=== PATIENT | male | born 1995 | race Caucasian/White ===

== ENCOUNTER 2018-06-03 16:37 | Emergency (ER) | payer BC ==
[2018-06-03] MEDS ORDERED: OXYCODONE-ACETAMINOPHEN 5-325 MG TABLET PO ONE (17:19)
[2018-06-03] MEDS ORDERED: DIPH/PERTUSS(ACELL)/TETANUS VAC/PF 0.5 ML SYR (>=10YO) IM ONE (17:19)
--- NOTE | 2018-06-03 17:20 | ER Document Report ---
ED Medical Screen (RME) - General Chief Complaint: Laceration Stated Complaint: FINGER LACERATION Time Seen by Provider: 06/03/18 17:17 Notes: 22-year-old male patient reports he is playing around with a box builder type razor knife and accidentally cut his left index fingertip. I have greeted and performed a rapid initial assessment of this patient. A comprehensive ED assessment and evaluation of the patient, analysis of test results and completion of the medical decision making process will be conducted by additional ED providers. TRAVEL OUTSIDE OF THE [place] IN LAST 30 DAYS: No - Related Data Allergies/Adverse Reactions: shellfish derived Allergy (Verified 06/03/18 16:37) Past Medical History - Social History Frequency of alcohol use: Occasional Drug Abuse: None Renal/ Medical History: Denies: Hx Peritoneal Dialysis Physical Exam - Vital signs Vitals: Temp Pulse Resp BP Pulse Ox 97.8 F 75 18 151/91 H 100 06/03/18 16:40 06/03/18 16:40 06/03/18 16:40 06/03/18 16:40 06/03/18 16:40 Course - Vital Signs Vital signs: Temp Pulse Resp BP Pulse Ox 97.8 F 75 18 151/91 H 100 06/03/18 16:40 06/03/18 16:40 06/03/18 16:40 06/03/18 16:40 06/03/18 16:40
[2018-06-03] MEDS ORDERED: ACETAMINOPHEN 325 MG TABLET PO ONE (17:26)
[2018-06-03] MEDS ORDERED: LIDOCAINE 1% INJ-PF (10 MG/ML) 30 ML SDV INJ ONE (18:19)
--- NOTE | 2018-06-03 18:21 | ER Document Report ---
ED Hand/Wrist Injury - General Chief Complaint: Laceration Stated Complaint: FINGER LACERATION Time Seen by Provider: 06/03/18 17:17 Mode of Arrival: Ambulatory Information source: Patient Notes: 22-year-old male presented to ED for complaint of laceration to the left index fingertip. Patient is alert and oriented respirations regular and unlabored speaking in full sentences. He states he does not know when his last tetanus shot was. TRAVEL OUTSIDE OF THE [place] IN LAST 30 DAYS: No - HPI Injury to: Index finger Onset: Just prior to arrival Where: Home Timing: Still present Quality of pain: Sharp, Throbbing Severity: Moderate Pain Level: 3 Context: Laceration - Related Data Allergies/Adverse Reactions: shellfish derived Allergy (Verified 06/03/18 16:37) Past Medical History - General Information source: Patient - Social History Smoking Status: Never Smoker Cigarette use (# per day): No Chew tobacco use (# tins/day): No Smoking Education Provided: No Frequency of alcohol use: Occasional Drug Abuse: None Occupation: [employer] Lives with: Alone Family History: Reviewed & Not Pertinent Patient has suicidal ideation: No Patient has homicidal ideation: No - Past Medical History Cardiac Medical History: Reports: None Pulmonary Medical History: Reports: Hx Asthma EENT Medical History: Reports: None Neurological Medical History: Reports: None Endocrine Medical History: Reports: None Renal/ Medical History: Reports: Hx Hydrocele Malignancy Medical History: Reports None GI Medical History: Reports: None Musculoskeletal Medical History: Reports None Skin Medical History: Reports None Psychiatric Medical History: Reports: None Traumatic Medical History: Reports: None Infectious Medical History: Reports: None Past Surgical History: Reports: Hx Adenoidectomy, Hx Oral Surgery - M[place] teeth , Hx Tonsillectomy, Other - Removal of hydroceles left side - Immunizations Immunizations up to date: Yes Hx Diphtheria, Pertussis, Tetanus Vaccination: Yes - 05/03/2018 Review of Systems - Review of Systems Notes: REVIEW OF SYSTEMS: CONSTITUTIONAL : Denies fever, chills, or sweats. Denies recent illness. EENT: Denies eye, ear, throat, or mouth pain or symptoms. Denies nasal or sinus congestion or discharge. Denies throat, tongue, or mouth swelling or difficulty swallowing. CARDIOVASCULAR: Denies chest pain. Denies palpitations or racing or irregular heart beat. Denies ankle edema. RESPIRATORY: Denies cough, cold, or chest congestion. Denies shortness of breath, difficulty breathing, or wheezing. GASTROINTESTINAL: Denies abdominal pain or distention. Denies nausea, vomiting , or diarrhea. Denies blood in vomitus, stools, or per rectum. Denies black, tarry stools. Denies constipation. GENITOURINARY: Denies difficulty urinating, painful urination, burning, frequency, blood in urine, or discharge. MUSCULOSKELETAL: Denies back or neck pain or stiffness. Denies joint pain or swelling. SKIN: Laceration to the distal left index fingertip. There was a small injury to the fingernail. HEMATOLOGIC : Denies easy bruising or bleeding. LYMPHATIC: Denies swollen, enlarged glands. NEUROLOGICAL: Denies confusion or altered mental status. Denies passing out or loss of consciousness. Denies dizziness or lightheadedness. Denies headache. Denies weakness or paralysis or loss of use of either side. Denies problems with gait or speech. Denies sensory loss, numbness, or tingling. Denies seizures. PSYCHIATRIC: Denies anxiety or stress. Denies depression, suicidal ideation, or homicidal ideation. ALL OTHER SYSTEMS REVIEWED AND NEGATIVE. Dictation was performed using [employer] voice recognition software PHYSICAL EXAMINATION: GENERAL: Well-appearing, well-nourished and in no acute distress. HEAD: Atraumatic, normocephalic. EYES: Pupils equal round and reactive to light, extraocular movements intact, sclera anicteric, conjunctiva are normal. ENT: Nares patent, oropharynx clear without exudates. Moist mucous membranes. NECK: Normal range of motion, supple without lymphadenopathy LUNGS: Breath sounds clear to auscultation bilaterally and equal. No wheezes rales or rhonchi. HEART: Regular rate and rhythm without murmurs ABDOMEN: Soft, nontender, nondistended abdomen. No guarding, no rebound. No masses appreciated. Musculoskeletal: Normal range of motion, no pitting or edema. No cyanosis. NEUROLOGICAL: Cranial nerves grossly intact. Normal speech, normal gait. Normal sensory, motor exams PSYCH: Normal mood, normal affect. SKIN: Laceration to the tip of the left index finger almost separate comfort control. Most of the nail was intact but there was a small laceration to the nail. Laceration was almost a flap of the end of the finger and was about 3 cm long Physical Exam - Vital signs Vitals: Temp Pulse Resp BP Pulse Ox 97.8 F 75 18 151/91 H 100 06/03/18 16:40 06/03/18 16:40 06/03/18 16:40 06/03/18 16:40 06/03/18 16:40 Course - Re-evaluation Re-evalutation: 06/04/18 01:46 Patient was treated with tetanus immunization, doxycycline, he was offered narcotics which he refused. His finger was soaked in some surgical scrub and warm water and it was anesthetized with lidocaine. The x-ray was negative for any bony involvement. The finger was then sutured with Ethilon sutures. Patient tolerated procedure well and was discharged home with prescription for doxycycline and instructions to follow-up with his primary care doctor on Tuesday. Patient was given instructions for care of wound and when to return to the ED. Patient was able to verbalize understanding and agreement with treatment plan. - Vital Signs Vital signs: Temp Pulse Resp BP Pulse Ox 98.1 F 72 16 142/79 H 99 06/03/18 20:14 06/03/18 20:14 06/03/18 20:14 06/03/18 20:14 06/03/18 20:14 Procedures - Laceration/Wound Repair Left Finger 2nd digit Time completed: 20:03 Wound length (cm): 3 Wound's Depth, Shape: Into muscle, Irregular, Flap Laceration pre-procedure: Sterile PPE donned, Sterile drapes applied, Shur- Clens applied Anesthetic type: 1% Lidocaine Volume Anesthetic (mLs): 8 Wound explored: Contaminated Irrigated w/ Saline (mLs): 400 Wound Debrided: Minimal Wound Repaired With: Sutures Suture Size/Type: 4:0, Ethilon Number of Sutures: 6 Post-procedure wound care: Sterile dressing applied, Splint applied Post-procedure NV exam normal: Yes Complications: No Discharge - Discharge Clinical Impression: Laceration of left index finger Qualifiers: Encounter type: initial encounter Damage to nail status: with damage Foreign body presence: without foreign body Qualified Code(s): S61.311A - Laceration without foreign body of left index finger with damage to nail, initial encounter Condition: Stable Disposition: HOME, SELF-CARE Additional Instructions: Hand Laceration A laceration on the hand can present special problems. It may be difficult to keep the wound dry. Motion of the fingers can disturb the healing edges. Your work may involve exposure to damaging chemicals or water. Keep the wound clean and dry. If you can't keep the cut dry, undisturbed, and free of chemical exposure, please discuss this with the doctor. If any water or chemical gets onto the dressing, remove it, blot the wound dry, then apply a fresh bandage. Dressings should be changed every day. If you feel the stitches pulling as you move the hand, a splint or other form of protection is needed. If any signs of infection occur (swelling, redness, increasing tenderness, red streaks, tender lumps in the armpit, or fever), see the doctor immediately. Not get the finger wet for 24 hours and then clean 3 times a day as you were instructed. Not remove the dressing for the first 24 hours. SOAP CLEANSING: Gently wash the wound daily using a mild soap (like Ivory, Phisoderm, Neutrogena). Use warm water, rubbing gently until all debris, ooze, and crusting have been washed from the wound. Allow to dry briefly (about 10 minutes) after cleaning. Repeat this cleansing at least three times a day for the first two days and then once or twice a day. ANTIBIOTIC OINTMENT PROTECTION: Your wounds are such that dressing them is not practical or optional. After cleansing, you should apply a thin coating of antibiotic ointment ( Bacitracin, not Neosporin) to the wounds at least three times daily. This lessens infection risk, and may decrease the amount of scarring. Use a q-tip or dull butter knife, not your finger, to apply this ointment. Any debris or ooze which builds up in the ointment should be gently rubbed off with a sterile gauze pad. Harder crusting may need to be gently scrubbed off with a clean wash cloth with soap and warm water, perhaps applying a warm, wet wash cloth to the wound for ten minutes first. Development of redness, severe itching, or blistering may mean allergy to the ointment. See the doctor. TETANUS IMMUNIZATION GIVEN: You have been given an immunization against tetanus. Please record this in your records. In general, a booster is needed only once every 10 years. The tetanus shot protects against tetanus or "lockjaw," which is a complication of certain wound infections (the tetanus shot cannot protect against the actual infection). The immunization site may become warm and red due to local reaction. If this occurs, apply warm compresses and take aspirin or ibuprofen to reduce inflammation and discomfort. Return for evaluation if the reaction becomes severe. Doxycycline Doxycycline (Vibramycin, Doryx) is an antibiotic of the tetracycline family. This type of drug is useful for infections of the respiratory tract and genital tract, and is sometimes used for intestinal infections. Unlike most tetracyclines, doxycycline can be taken with food. It is longer acting, and (usually) less prone to side effects than regular tetracycline. Tetracycline antibiotics can stain immature teeth and SHOULD NOT BE TAKEN BY CHILDREN, NURSING MOTHERS, OR WOMEN. Tetracyclines can make you more prone to sunburn. Abdominal cramping, nausea, and diarrhea are occasional side effects. Women may experience vaginal yeast infections. Call the doctor at once if you develop hives, itching, shortness of breath , or lightheadedness. FOLLOW-UP CARE: Please return in __3___ days for an infection check and dressing change. Your sutures should be removed in __8___ days. To facilitate a timely removal of your sutures, you may return to the Emergency Department at [facility]. You do not need to call for an appointment, but the best time to come in for suture removal is early in the morning. If you have been referred to another physician for follow-up care, call that physicians office for an appointment as you were instructed. If you experience a significant change in your laceration, or if you are concerned there may be an infection (swelling, redness, drainage, increasing tenderness, red streaks, tender lumps in the armpit or groin above the laceration, or fever) , return to the Emergency Department immediately re-evaluation. Prescriptions: Doxycycline Hyclate 100 mg PO BID #20 capsule Forms: Elevated Blood Pressure, Return to Work Referrals: FLORENTIN ALVAREZ MD [Primary Care Provider] - Follow up as needed
--- NOTE | 2018-06-03 18:52 | RADIOLOGY REPORT (SQ) ---
EXAM DESCRIPTION: FINGER LEFT COMPLETED DATE/TIME: 06/03/2018 6:37 pm REASON FOR STUDY: left index finger end sliced COMPARISON: None. NUMBER OF VIEWS: Three views. TECHNIQUE: AP view of the left and and oblique and lateral images acquired of the left second finge r. LIMITATIONS: None. FINDINGS: MINERALIZATION: Normal. BONES: No acute fracture. Mild positive ulnar variance. Alignment is otherwise normal. Joint space s are normal. Small sclerotic focus of the base of the proximal phalanx of 2nd digit, likely represe nting a bone island. SOFT TISSUES: Soft tissue swelling overlying the distal 2nd digit with a soft tissue defect correspon ding to the patient's known laceration. No radiopaque foreign body. No subcutaneous gas. OTHER: No other significant finding. IMPRESSION: 1. No acute fracture or dislocation. 2. Laceration overlying the distal 2nd digit. No radiopaque foreign body. TECHNICAL DOCUMENTATION: JOB ID: [id number] [employer] ([employer])- All Rights Reserved Reading location - IP/workstation name: [email or web address]
[2018-06-03] MEDS ORDERED: DOXYCYCLINE HYCLATE 100 MG TABLET PO ONE (19:57)
[2018-06-03 20:15] VITALS: BP 142/79
== END 2018-06-03 20:15 | disposition home or self-care (01) ==
LOC: ER 16:37
DX: S61.211A Laceration without foreign body of left index finger without damage to nail, initial encounter (principal); X58.XXXA Exposure to other specified factors, initial encounter; Y92.009 Unspecified place in unspecified non-institutional (private) residence as the place of occurrence of the external cause; Z91.013 Allergy to seafood; Z23 Encounter for immunization
CPT/HCPCS: 99283; 90471; 73140; 90715; 12002; J3490